=== PATIENT | male | born 1940 ===

== ENCOUNTER 2020-07-23 09:28 | Day surgery (SDC) | payer MEDICARE, SELFPAY ==
--- NOTE | 2020-07-23 | PATH_ITS ---
[facility] Accession Number: [id number] . 01 Material submitted: . colon - CECUM POLYP . 01 Clinical history: . SCREENING COLONOSCOPY . 02 Diagnosis: Cecum, Polyp, Biopsy: Tubular adenoma. MRV 07/26/2020 1042 Local . 02 Electronically signed: . Radha Rincon MD, Pathologist NPI- [id number] . 01 Gross description: . CECUM POLYP: Received in formalin is 1 fragment(s) of cruz, soft tissue measuring 0.3 x 0.3 x 0.3 cm submitted entirely in 1 cassette(s) /DONNELL 07/24/2020 1902 Local . 02 Pathologist provided ICD-10: D12.0 . 02 CPT . 856595 Performed at: 01 [facility] [address] [place] [address], [place], [place] [id number] MD Phani Paul MD Phone: [phone] Performed at: 02 [facility] [address] [place], [place] [id number] MD Radha Rincon MD Phone: [phone]
[2020-07-23 09:53] VITALS: BP 120/67; PULSE 52; RESP 18; TEMP 36.1; O2SAT 98; BMI 26.9
[2020-07-23] MEDS: LACTATED RINGERS 1,000 ML 200 ML IV (10:14)
--- NOTE | 2020-07-23 10:15 | SUR.PREOP ---
Covid test outdated by one day, Kristin notified, rapid test done and sent to lab.
[2020-07-23 10:23] LABS: COVID19 -Nasal RAPID Negative (Negative)
--- NOTE | 2020-07-23 10:49 | PM.HP.1 ---
History of Present Illness History of Present Illness Date Patient Seen: 07/23/20 Time Patient Seen: 10:50 Chief complaint: SCREENING COLONOSCOPY Narrative: The patient presents for colorectal sreening. He had a previous colonoscopy about a 7 years ago significant for benign polyps.. No personal or family history of colon cancer. On further history denies any recent gastrointestinal symptoms. No nausea, vomiting, abdominal pain, loss of appetite, unexplained weight loss, change in bowel habits, diarrhea, constipation, melena, hematochezia, or bright red blood per rectum. Patient History Medical History History of colonic polyps (11/16/15) Stage 3 chronic kidney disease (11/16/15) Surgical History History of cataract removal with insertion of prosthetic lens Family & Social History Family History Father Heart disease Parkinson's disease Bleeding ulcer Social History: household members spouse Tobacco & Substance use: Smoking Status Never smoker alcohol intake current alcohol intake frequency 0-2 drinks per day Substance Use Type does not use Meds Home Medications and Allergies Home Medications Medication Instructions Recorded Confirmed Type CA PANTOTHENATE/FOLIC ACID/VIT 1 tab PO QDAY #0 08/24/12 07/23/20 History (MULTIVITAMIN) CHOLECALCIFEROL (VITAMIN D) 2,000 units PO QDAY #0 08/24/12 History atorvastatin [Lipitor] 40 mg PO HS #90 tab 10/23/16 07/23/20 Rx aspirin 81 mg PO DAILY #0 11/28/16 07/23/20 History timolol 1 drp OPHTHALMIC (EYE) BID 07/23/20 07/23/20 History Allergies Allergy/AdvReac Type Severity Reaction Status Date / Time lactose [LACTOSE] Allergy Intermediate GI UPSET Verified 07/23/20 10:49 Review of Systems Review of Systems ROS: Yes All systems reviewed with the patient and are negative except as otherwise documented Exam Vital Signs (past 8 hours): - 07/23/20 09:53 Temperature 97.0 F L Pulse Rate 52 L Respiratory Rate 18 Blood Pressure 120/67 Pulse Oximetry 98 Oxygen Delivery Method Room Air Narrative Exam Narrative: GENERAL-well developed elderly male, no acute distress HEENT-no scleral icterus, hearing intact NECK-no JVD, trachea midline CVS- regular rate, no peripheral edema RESP-unlabored respiratory effort, no audible wheezing GI-soft, nontender nondistended MSK-no cyanosis or clubbing, extremities without deformity SKIN-warm, dry NEURO-alert and oriented, no focal deficits PYSCH-Appropriate mood and affect Objective Labs Labs: Laboratory Results - last 24 hr 07/23/20 10:00 SARS-CoV-2 (PCR) Negative Assessment & Plan Assessment and plan (1) History of colonic polyps: Status: None Assessment & Plan narrative: The patient requires colorectal screening and colonoscopy is recommended. Technical details were discussed. Risks, benefits, alternatives explained. Risks including but not limited to myocardial infarction, aspiration, bleeding, pain, missed lesion, incomplete examination, need for further radiographic studies, colonic perforation, and need for major abdominal surgery were discussed. All questions were answered to their satisfaction, and they are in agreement with this plan.
[2020-07-23] MEDS: MIDAZOLAM 5 MG/5 ML VIAL IV (11:01)
[2020-07-23] MEDS: fentaNYL 250 MCG/5 ML INJ IV (11:02)
--- NOTE | 2020-07-23 11:32 | PM.OP.ENDO ---
Operative Date/Time/Diagnoses Date of procedure: 07/23/20 Time of procedure: 11:32 Pre-op diagnosis: personal history of colonic polyps Post-op diagnosis: same Procedure & Clinicians Study performed: Colonoscopy Polypectomy Same procedure as scheduled: Yes Indications: Personal history of colonic polyps Surgeon: Bello Latham Procedure Notes Procedure in detail: Medications: Conscious sedation using 5mg IV midazolam and 150mcg IV of fentanyl The history and physical was performed/updated and the patient is ASA class is 2. The procedure was discussed in detail with the patient. Potential risks complications including infection, bleeding, missed diagnosis, perforation, need for surgery, and were explained. Their questions were answered and informed consent was obtained. Patient was brought to the procedure room and placed standard monitoring equipment. The patient's vital signs were monitored continuously throughout the entire procedure. Prior to starting time-out was performed. The patient was placed in the left lateral recumbent position. Procedural sedation was administered. Examination began with a thorough inspection of the perianal area there was no evidence of fissures, fistulae, external hemorrhoids or cutaneous malignancy. The colonoscopy scope was then placed into the anal canal and was advanced to the cecum, which was identified by the ileocecal valve, the appendiceal orifice and the confluence of the taenia. The scope was then slowly withdrawn examining colon thoroughly in all directions, irrigating it of any residual stool. -5 mm cecal polyp removed with biopsy forceps -sigmoid diverticulosis The patient tolerated the procedure well. They will be discharged once criteria are met. The prep was of good/excellent quality. The withdrawl time was 7 minutes. The sedation time was 25 minutes. Specimen(s): other (Cecal polyp) Complications: none Impression: Colonic polyp Post-procedure Recommendations: Colonscopy in 5 years Disposition: same day surgery
[2020-07-23 11:35] VITALS: BP 100/53; PULSE 67; RESP 13; TEMP 36.4; O2SAT 94
[2020-07-23 11:39] VITALS: BP 98/56; PULSE 48; RESP 12; O2SAT 94
[2020-07-23 11:44] VITALS: BP 99/60; PULSE 51; RESP 13; TEMP 36.1; O2SAT 95
== END 2020-07-23 12:01 | disposition home or self-care (01) ==
PROVIDERS: Family Provider Family Medicine; PCP Family Medicine; Referring Provider Surgery; Visit Provider Surgery
PROC: 0DJD8ZZ Inspection of Lower Intestinal Tract, Via Natural or Artificial Opening Endoscopic (ICD-10-PCS; CPT 45378; principal; 2020-07-23 10:45)
DX: Z12.11 Encounter for screening for malignant neoplasm of colon (principal); Z86.010 Personal history of colon polyps; N18.30 Chronic kidney disease, stage 3 unspecified; K57.30 Diverticulosis of large intestine without perforation or abscess without bleeding; D12.0 Benign neoplasm of cecum
CPT/HCPCS: 45380; 87635; 99152; J2250; J3010